=== PATIENT | male | born 1950 | race Caucasian/White ===

== ENCOUNTER 2018-01-22 07:25 | Day surgery (SDC) | payer OTHER, MEDICARE ==
[2018-01-21 11:11] LABS: BASOPHILS % (AUTO) 0.8 % (0.0-2.0); EOSINOPHILS # (AUTO) 0.2 K/uL (0.0-0.4); EOSINOPHILS % (AUTO) 3.5 % (0.0-4.0); HEMATOCRIT 42.3 % (36-54); HEMOGLOBIN 13.4 g/dL (14.0-18.0); LYMPHOCYTES # (AUTO) 1.4 K/uL (1.0-5.5); MEAN CORPUSCULAR HEMOGLOBIN 31 pg (27-31); MEAN CORPUSCULAR HGB CONC 32 % (32-36); MEAN CORPUSCULAR VOLUME 97 fL (79.0-98.0); MONOCYTES # (AUTO) 0.4 K/uL (0.0-1.0); MONOCYTES % (AUTO) 8.1 % (1.7-9.3); NEUTROPHILS # (AUTO) 3.2 K/uL (1.8-7.7); NEUTROPHILS % (AUTO) 60.6 % (40.0-70.0); PLATELET COUNT (AUTO) 140 K/uL (130-430); RED BLOOD CELL COUNT(AUTO) 4.36 MIL/uL (4.2-6.2); RED CELL DISTRIBUTION WIDTH 12.4 % (9.0-15.0); WHITE BLOOD COUNT (AUTO) 5.2 K/uL (4.8-10.8)
[2018-01-21 11:30] LABS: ALBUMIN 3.9 g/dL (3.4-4.8); CALCIUM 9.8 mg/dL (8.4-11.0); CREATININE 0.89 mg/dL (0.55-1.30); POTASSIUM 4.5 mmol/L (3.5-5.1); TOTAL BILIRUBIN 0.4 mg/dL (0.0-1.0)
[~2018-01-22] VITALS: Ht 180.3 cm; Wt 97.5 kg
[~2018-01-22 07:25] MED LIST: ceFAZolin SODIUM 2 GM in D5W 100 ML IV ONE
[2018-01-22] MEDS ORDERED: ONDANSETRON HCL 4 MG/2 ML VIAL IVP ONE (09:15)
[2018-01-22] MEDS ORDERED: SUGAMMADEX SODIUM 200 MG/2 ML VIAL IV ONE (09:15)
[2018-01-22] MEDS ORDERED: SEVOFLURANE 15 MIN GAS INH ONE (09:15)
[2018-01-22] MEDS ORDERED: PROPOFOL 200MG/ 20ML VIAL (DIPRIVAN) IV ONE (09:15)
[2018-01-22] MEDS ORDERED: NS 1000 ML IV.SOLN IV ONE (09:15)
[2018-01-22] MEDS ORDERED: LR 1,000 ML IV.SOLN IV ONE (09:15)
[2018-01-22] MEDS ORDERED: FLUMAZENIL 0.1 MG/ML IVP ONE (09:15)
[2018-01-22] MEDS ORDERED: fentaNYL CITRATE 250 MCG/5 ML AMP IV ONE (09:15)
[2018-01-22] MEDS ORDERED: ROCURONIUM BROMIDE 10 MG/ML (ZEMURON) IV ONE (09:15)
[2018-01-22] MEDS ORDERED: MIDAZOLAM HCL 5 MG/5 ML VIAL IVP ONE (09:15)
[2018-01-22] MEDS ORDERED: BUPIVACAINE /EPINEPHRINE/PF 0.5% 30 ML VIAL INJ ONE (09:54)
[2018-01-22] MEDS ORDERED: METOCLOPRAMIDE HCL 10 MG/2 ML VIAL IVP PRN (10:15)
[2018-01-22] MEDS ORDERED: LR 1,000 ML IV SCH (10:15)
[2018-01-22] MEDS ORDERED: MORPHINE 4 MG/ML INJ. SYRINGE IVP PRN ×3 (10:15)
[2018-01-22] MEDS ORDERED: D5/0.45 NS 1,000 ML IV SCH (11:44)
[2018-01-22] MEDS ORDERED: ONDANSETRON HCL 4 MG/2 ML VIAL IVP PRN (11:45)
[2018-01-22] MEDS ORDERED: HYDROcodone/ACETAMIN 5-325 MG TAB (NORCO/ VICODIN) PO PRN ×2 (11:45)
[2018-01-22] MEDS ORDERED: METOCLOPRAMIDE HCL 10 MG/2 ML VIAL IVP SCH (11:45)
[2018-01-22] MEDS ORDERED: HYDROcodone/ACETAMIN 5-325 MG TAB (NORCO/ VICODIN) ONE (13:41)
[2018-01-22 13:45] VITALS: BP_SYST 122
== END 2018-01-22 14:30 | disposition home or self-care (01) ==
LOC: SDS 07:25 → SMU 07:25 → SDS 14:30
PROVIDERS: ATTEND Surgery
DX: K80.10 Calculus of gallbladder with chronic cholecystitis without obstruction (principal); K42.9 Umbilical hernia without obstruction or gangrene; I10 Essential (primary) hypertension; E11.40 Type 2 diabetes mellitus with diabetic neuropathy, unspecified; E66.01 Morbid (severe) obesity due to excess calories; Z88.8 Allergy status to other drugs, medicaments and biological substances; Z90.89 Acquired absence of other organs; Z79.84 Long term (current) use of oral hypoglycemic drugs; Z79.899 Other long term (current) drug therapy; Z87.891 Personal history of nicotine dependence; Z98.890 Other specified postprocedural states
CPT/HCPCS: 36415; 47562; 49585; 71046; 80053; 82962; 85025; 88302; 88304; 93005; C1727; C9399; J0690; J2250; J2405; J2704; J3010; J3490 ×2; J7030; J7120; J7060

== ENCOUNTER 2023-01-18 15:09 | Inpatient (IN) | payer OTHER, MEDICARE ==
[~2023-01-18] VITALS: Ht 170.2 cm; Wt 88.5 kg
[2023-01-18] MEDS ORDERED: ACETAMINOPHEN 500 MG TABLET PO ONE (15:15)
[2023-01-18] MEDS ORDERED: ONDANSETRON HCL 4 MG/2 ML VIAL IVP ONE (15:15)
[2023-01-18] MEDS ORDERED: NACL 0.9% 1,000 ML IV ONE ×2 (15:15→16:45)
[2023-01-18 15:31] VITALS: BP_SYST 178; PULSE 100; RESP 20; TEMP 98.1; O2SAT 96
[2023-01-18 15:44] LABS: EOSINOPHILS % (AUTO) 0.2 % (0.0-4.0); LYMPHOCYTES # (AUTO) 1.4 K/uL (1.0-5.5); LYMPHOCYTES % (AUTO) 9.1 % (20.5-51.5); RED CELL DISTRIBUTION WIDTH 14.6 % (9.0-15.0)
[2023-01-18 15:52] LABS: BASOPHILS % (AUTO) 0.1 % (0.0-2.0); HEMATOCRIT 44.6 % (36-54); MEAN CORPUSCULAR HEMOGLOBIN 31 pg (27-31); MEAN CORPUSCULAR HGB CONC 34 % (32-36); MEAN CORPUSCULAR VOLUME 93 fL (79.0-98.0); MONOCYTES # (AUTO) 1.3 K/uL (0.0-1.0); MONOCYTES % (AUTO) 8.6 % (1.7-9.3); NEUTROPHILS # (AUTO) 12.3 K/uL (1.8-7.7); RED BLOOD CELL COUNT(AUTO) 4.82 MIL/uL (4.2-6.2)
[2023-01-18] MEDS ORDERED: PIPERACILLIN/TAZOBACTAM 3.375 GM/VIAL (ZOSYN) IV ONE (15:55)
[2023-01-18 16:00] LABS: ANION GAP 15 (5-15); CALCIUM 9.2 mg/dL (8.4-11.0); CARBON DIOXIDE 23 mmol/L (23-29); CHLORIDE 95 mmol/L (98-107); GLUCOSE 97 mg/dL (74-106); POTASSIUM 3.7 mmol/L (3.5-5.1); SODIUM SERUM 133 mmol/L (136-145); UREA NITROGEN, BLOOD 15 mg/dL (8-21)
[2023-01-18] MEDS ORDERED: PIPERACILLIN/TAZO 3.375 GM in NS 50 ML IV ONE (16:00)
[2023-01-18 16:06] LABS: ALANINE AMINOTRANSFERASE 17 U/L (12-78); ASPARTATE AMINOTRANSFERASE 25 U/L (10-37); TOTAL PROTEIN, SERUM 8.5 g/dL (6.4-8.3)
[2023-01-18 16:08] LABS: PLATELET COUNT (AUTO) 99 K/uL (130-430)
[2023-01-18 16:46] LABS: BILIRUBIN,URINE NEGATIVE (NEGATIVE); BLOOD, URINE 2+ (NEGATIVE); CLARITY/URINE Clear (CLEAR); COLOR,URINE YELLOW (YELLOW); GLUCOSE,URINE 2+ (NEGATIVE); KETONES,URINE 2+ (NEGATIVE); LEUKOCYTE ESTERASE ,URINE NEGATIVE (NEGATIVE); NITRITE, URINE NEGATIVE (NEGATIVE); PH,URINE 5.5 (5.0-8.0); PROTEIN URINE 3+ (NEGATIVE); UROBILINOGEN,URINE 0.2 (0.2-1.0)
[2023-01-18] MEDS ORDERED: METF-381 PO (17:20)
[2023-01-18] MEDS ORDERED: ATEN50TA PO (17:20)
[2023-01-18] MEDS ORDERED: GLIM4TAB37 PO (17:20)
[2023-01-18] MEDS ORDERED: LISI40TA13 PO (17:20)
[2023-01-18] MEDS ORDERED: SIMV-46 PO (17:20)
[2023-01-18 17:26] LABS: BACTERIA,URINE None Seen /HPF (None Seen)
[2023-01-18] MEDS ORDERED: MAGNESIUM SULFATE 50 ML IV PRN (17:30)
[2023-01-18] MEDS ORDERED: ONDANSETRON HCL 4 MG/2 ML VIAL IVP PRN (17:30)
[2023-01-18] MEDS ORDERED: LORazepam 2 MG/ML VIAL IVP PRN (17:30)
[2023-01-18] MEDS ORDERED: MORPHINE 2 MG/ML INJ. SYRINGE IVP PRN ×2 (17:30)
[2023-01-18] MEDS ORDERED: DEXTROSE 50% JECT 50 ML DISP.SYRIN IVP PRN (17:30)
[2023-01-18] MEDS ORDERED: POTASSIUM CHLORIDE 20 MEQ TAB.PRT.SR PO PRN (17:30)
[2023-01-18] MEDS ORDERED: MUPIROCIN 2% TOPICAL OINTMENT 22 GM NS PRN (17:30)
[2023-01-18] MEDS ORDERED: ACETAMINOPHEN 325 MG TABLET PO PRN ×2 (17:30→17:45)
[2023-01-18] MEDS ORDERED: DOCUSATE SODIUM 100 MG CAPSULE PO PRN (17:30)
[2023-01-18] MEDS ORDERED: ZOLPIDEM TARTRATE 5 MG TABLET PO PRN (17:30)
[2023-01-18 17:35] LABS: INFLUENZA TYPE A negative (NEGATIVE); INFLUENZA TYPE B NEGATIVE (NEGATIVE)
[2023-01-18] MEDS: NACL 0.9% 1,000 ML IV SCH (17:45)
[2023-01-18] MEDS ORDERED: LISINOPRIL 10 MG TABLET (PRINIVIL) PO ONE (17:45)
[2023-01-18 17:51] LABS: ABG O2 SAT% ESTIMATE 92.6 % (94.0-100.0); ALLEN'S TEST POSITIVE (P); BLOOD GAS BASE EXCESS -4.7 mmol/L (-3.0-3.0); BLOOD GAS HCO3 18.4 mmol/L (21.0-27.0); BLOOD GAS PCO2 29.5 mmHg (32.0-45.0); BLOOD GAS PH 7.414 (7.350-7.450); BLOOD GAS PO2 62.4 mmHg (75.0-100.0)
[2023-01-18] MEDS ORDERED: DEXAMETHASONE SOD PHOSPHATE 10 MG/ML VIAL IVP ONE (18:00)
[2023-01-18 21:00] VITALS: BP_SYST 133; PULSE 64; RESP 20; TEMP 98.4; O2SAT 99
[2023-01-18] MEDS ORDERED: HEPARIN SODIUM,PORCINE 5,000 UNITS/ML VIAL SUBCUT SCH (21:00)
[2023-01-18] MEDS ORDERED: IPRATROPIUM/ALBUTEROL SULFATE 3 ML AMPUL.NEB (DUONEB) INH PRN (22:15)
[2023-01-18] MEDS ORDERED: DECADRON 4 MG TABLET PO SCH (22:15)
[2023-01-18] MEDS: lisinopriL 20 MG TABLET PO SCH (22:53)
[2023-01-18] MEDS: INSULIN LISPRO SLIDING SCALE 100 UNITS/ML, 3 ML VIAL (humaLOG) SUBCUT PRN (22:55)
[2023-01-18 23:39] VITALS: BP_SYST 147; PULSE 78; O2SAT 97
[2023-01-19 00:45] VITALS: BP_SYST 150; PULSE 59; RESP 18; TEMP 97.5; O2SAT 100
[2023-01-19] MEDS: NACL 0.9% 1,000 ML IV SCH (06:09)
[2023-01-19] MEDS: INSULIN LISPRO SLIDING SCALE 100 UNITS/ML, 3 ML VIAL (humaLOG) SUBCUT PRN ×2 (06:16→11:42)
[2023-01-19 06:47] LABS: HEMATOCRIT 42.4 % (36-54); HEMOGLOBIN 13.9 g/dL (14.0-18.0); LYMPHOCYTES # (AUTO) 1.1 K/uL (1.0-5.5); LYMPHOCYTES % (AUTO) 8.1 % (20.5-51.5); MEAN CORPUSCULAR HEMOGLOBIN 31 pg (27-31); MEAN CORPUSCULAR HGB CONC 33 % (32-36); MEAN CORPUSCULAR VOLUME 93 fL (79.0-98.0); MONOCYTES # (AUTO) 0.5 K/uL (0.0-1.0); MONOCYTES % (AUTO) 3.5 % (1.7-9.3); NEUTROPHILS # (AUTO) 11.9 K/uL (1.8-7.7); NEUTROPHILS % (AUTO) 88.4 % (40.0-70.0); PLATELET COUNT (AUTO) 80 K/uL (130-430); RED BLOOD CELL COUNT(AUTO) 4.55 MIL/uL (4.2-6.2); RED CELL DISTRIBUTION WIDTH 14.6 % (9.0-15.0); WHITE BLOOD COUNT (AUTO) 13.5 K/uL (4.8-10.8)
[2023-01-19 07:19] LABS: ANION GAP 18 (5-15); CALCIUM 8.7 mg/dL (8.4-11.0); CARBON DIOXIDE 19 mmol/L (23-29); CHLORIDE 102 mmol/L (98-107); CREATININE 0.81 mg/dL (0.55-1.30); GLUCOSE 178 mg/dL (74-106); SODIUM SERUM 139 mmol/L (136-145); UREA NITROGEN, BLOOD 18 mg/dL (8-21)
[2023-01-19 08:04] VITALS: BP_SYST 136; PULSE 68; RESP 19; TEMP 95; O2SAT 98
[2023-01-19] MEDS ORDERED: ATENOLOL 50 MG TABLET (TENORMIN) PO SCH (09:00)
[2023-01-19] MEDS ORDERED: cefTRIAXone 1 GM in D5W 50 ML IV SCH (09:00)
[2023-01-19] MEDS: lisinopriL 20 MG TABLET PO SCH (09:18)
[2023-01-19 12:00] VITALS: BP_SYST 140; PULSE 71; RESP 20; TEMP 97.9; O2SAT 99
[2023-01-19 16:00] VITALS: BP_SYST 142; PULSE 74; RESP 18; TEMP 98; O2SAT 98
== END 2023-01-19 17:09 | disposition left against medical advice (07) | DRG 871 ==
LOC: SED 15:09 → STU 17:25
PROVIDERS: ADMIT General Practice; ATTEND General Practice
PROC: XW033E5 Introduction of Remdesivir Anti-infective into Peripheral Vein, Percutaneous Approach, New Technology Group 5 (ICD-10-PCS; principal; 2023-01-18)
DX: A41.9 Sepsis, unspecified organism (principal); J12.82 Pneumonia due to coronavirus disease 2019; U07.1 COVID-19; J96.01 Acute respiratory failure with hypoxia; E87.20 Acidosis, unspecified; L03.115 Cellulitis of right lower limb; K70.30 Alcoholic cirrhosis of liver without ascites; I10 Essential (primary) hypertension; E11.649 Type 2 diabetes mellitus with hypoglycemia without coma; E78.5 Hyperlipidemia, unspecified; F10.10 Alcohol abuse, uncomplicated; Y90.9 Presence of alcohol in blood, level not specified; D69.6 Thrombocytopenia, unspecified; Z88.8 Allergy status to other drugs, medicaments and biological substances; Z79.84 Long term (current) use of oral hypoglycemic drugs
CPT/HCPCS: 36415; 36600; 70450-TC; 71045; 76376; 80048; 80053; 81000; 82803; 82962; 83037; 83605; 83735; 83880; 84484; 85025; 87040; 87086; 93005; 96361; 96365; 96375; 99285; G0378; J0696; J1100; J2405; J2543; J7050; J7060